=== PATIENT | male | born 1995 | race Caucasian/White ===

== ENCOUNTER → 2018-03-26 | Day surgery (SDC) | payer OTHER ==
--- NOTE | 2018-03-26 14:01 | RADIOLOGY REPORT (SQ) ---
EXAM DESCRIPTION: ARTHRO SHOULDER INJECTION; FLUORO/NEEDLE PLACEMENT COMPLETED DATE/TIME: 03/26/2018 1:40 pm REASON FOR STUDY: OTHER INSTABILITY OF LEFT SHOULDER (M25.312) COMPARISON: None. EXAM PARAMETERS: LIMITATIONS: None. OPERATING PHYSICIAN/PA: Rufus FLUOROSCOPY TIME: 8 seconds NUMBER OF IMAGES: 1 JOINT: Shoulder LATERALITY: Left APPROACH: Posterior ANESTHESIA: 5 mL 1% Lidocaine. LOCALIZING CONTRAST TYPE AND AMOUNT: 1mL Isovue 300 DIAGNOSTIC CONTRAST TYPE AND AMOUNT: 10mL Omnipaque 200 PRE-INJECTION PAIN LEVEL: N/A POST-INJECTION PAIN LEVEL: N/A CROSS-SECTIONAL IMAGING MODALITY: MRI OTHER: none PROCEDURE: Procedure, risks, benefits and alternatives explained to patient who then gave written co nsent. The patient was then moved to the fluoroscopic room, and placed on the table in appropriate po sition. The left shouldermarked. Time-out called. Correct marking verified. Entry site marked using fluorosco pic guidance. Site prepped and draped using sterile technique. Local anesthesia achieved using injection. Hypoderm ic needle introduced into the joint space under direct fluoroscopic visualization. Non-ionic contrast instilled to confirm intra-articular position. Additional diagnostic contrast instilled. Needle xenia yvonne and entry site covered with sterile bandage. No immediate complications noted. FINDINGS: No significant pathology noted on images during and post-injection. IMPRESSION: SUCCESSFUL NEEDLE PLACEMENT AND INJECTION OF left shoulder NO SIGNIFICANT IMAGING FINDINGS. COMMENT: Quality ID #[id number]: Final reports for procedures using fluoroscopy that document radiation exp osure indices, or exposure time and number of fluorographic images (if radiation exposure indices are not available) TECHNICAL DOCUMENTATION: JOB ID: [id number] [employer]- All Rights Reserved Reading location - IP/workstation name: [facility]
--- NOTE | 2018-03-26 14:01 | RADIOLOGY REPORT (SQ) ---
EXAM DESCRIPTION: ARTHRO SHOULDER INJECTION; FLUORO/NEEDLE PLACEMENT COMPLETED DATE/TIME: 03/26/2018 1:40 pm REASON FOR STUDY: OTHER INSTABILITY OF LEFT SHOULDER (M25.312) COMPARISON: None. EXAM PARAMETERS: LIMITATIONS: None. OPERATING PHYSICIAN/PA: Rufus FLUOROSCOPY TIME: 8 seconds NUMBER OF IMAGES: 1 JOINT: Shoulder LATERALITY: Left APPROACH: Posterior ANESTHESIA: 5 mL 1% Lidocaine. LOCALIZING CONTRAST TYPE AND AMOUNT: 1mL Isovue 300 DIAGNOSTIC CONTRAST TYPE AND AMOUNT: 10mL Omnipaque 200 PRE-INJECTION PAIN LEVEL: N/A POST-INJECTION PAIN LEVEL: N/A CROSS-SECTIONAL IMAGING MODALITY: MRI OTHER: none PROCEDURE: Procedure, risks, benefits and alternatives explained to patient who then gave written co nsent. The patient was then moved to the fluoroscopic room, and placed on the table in appropriate po sition. The left shouldermarked. Time-out called. Correct marking verified. Entry site marked using fluorosco pic guidance. Site prepped and draped using sterile technique. Local anesthesia achieved using injection. Hypoderm ic needle introduced into the joint space under direct fluoroscopic visualization. Non-ionic contrast instilled to confirm intra-articular position. Additional diagnostic contrast instilled. Needle xenia yvonne and entry site covered with sterile bandage. No immediate complications noted. FINDINGS: No significant pathology noted on images during and post-injection. IMPRESSION: SUCCESSFUL NEEDLE PLACEMENT AND INJECTION OF left shoulder NO SIGNIFICANT IMAGING FINDINGS. COMMENT: Quality ID #[id number]: Final reports for procedures using fluoroscopy that document radiation exp osure indices, or exposure time and number of fluorographic images (if radiation exposure indices are not available) TECHNICAL DOCUMENTATION: JOB ID: [id number] [employer]- All Rights Reserved Reading location - IP/workstation name: [facility]
--- NOTE | 2018-03-26 14:51 | RADIOLOGY REPORT (SQ) ---
EXAM DESCRIPTION: MRI LT UPPER JOINT WITH COMPLETED DATE/TIME: 03/26/2018 2:12 pm REASON FOR STUDY: OTHER INSTABILITY OF LEFT SHOULDER (M25.312) M25.312 OTHER INSTABILITY, LEFT SHOU LDER COMPARISON: Plain radiograph TECHNIQUE: Left shoulder images acquired and stored on PACS. Oblique coronal, oblique sagittal, and axial imaging to include fat sensitive sequences as T1, water sensitive sequences as FST2/STIR, and c ontrast sensitive sequences as FST1. LIMITATIONS: None. FINDINGS: JOINT DISTENTION: Adequate distention for interpretation. BONE MARROW AND CORTEX: Normal. No significant osteophytes. No edema or defects. AC JOINT: Type 1 acromion. In. No significant AC joint arthropathy. GLENOHUMERAL JOINT: Posterior subluxation of the humeral head with respect to the glenoid. There is generalized irregular cartilaginous loss of the general glenohumeral joint. Subchondral cyst formati on through the glenoid. ROTATOR CUFF: Intact without significant tendinopathy, partial or full-thickness tears. No peritendin itis. LABRUM AND BICEPS LABRAL COMPLEX: Shallow glenoid. Minimal superior labrum. Apparent prior biceps t enodesis. INFERIOR LABRAL COMPLEX: Bony glenoid and labrum intact. IGHL intact without thickening or tear. No p aralabral cysts. ADJACENT SOFT TISSUES: No masses or nodes. OTHER: No other significant finding. IMPRESSION: Glenohumeral osteoarthritis with posterior subluxation of the humerus with respect to th e glenoid. Intact rotator cuff. Absent superior labrum with a shallow glenoid. Apparent prior biceps tenodesis. TECHNICAL DOCUMENTATION: JOB ID: [id number] [employer]- All Rights Reserved Reading location - IP/workstation name: [facility]
== END ==
LOC: RAD 12:40
PROVIDERS: ATTEND Orthopaedic Surgery
DX: M25.312 Other instability, left shoulder (principal)
CPT/HCPCS: 23350; 77002

== ENCOUNTER 2018-09-12 02:22 | Emergency (ER) | payer OTHER ==
--- NOTE | 2018-09-12 03:13 | ER Document Report ---
ED General - General Stated Complaint: PSYCH Time Seen by Provider: 09/12/18 03:11 Notes: Patient is a 23-year old male with a past medical history of anxiety, depression, presents due to having called a friend and stated that he was acutely suicidal. The patient admits that he was drinking heavily tonight, does not recall making this phone call. He does however admit that he continues to have daily passive suicidal ideation, feels numb all the time, does not have any natalia or pleasure in his life. Reports that he has felt like this for some time "states I know my screws are not on tight". States that [facility] but [facility] as he did not like the way they made him feel and did not feel like they were helping. He states that he has tried to harm himself once in the past but could not go through with it due to his children. He also relates significant emotional and relationship discord with his . Denies any acute medical concerns today. Nothing improves or worsens his symptoms currently. TRAVEL OUTSIDE OF THE [place] IN LAST 30 DAYS: No - Related Data Allergies/Adverse Reactions: No Known Allergies Allergy (Verified 09/18/13 17:15) Past Medical History - General Information source: Patient - Social History Smoking Status: Never Smoker Chew tobacco use (# tins/day): Yes Frequency of alcohol use: Social Drug Abuse: None Lives with: Spouse/Significant other Family History: Reviewed & Not Pertinent - Immunizations Immunizations up to date: Yes Hx Diphtheria, Pertussis, Tetanus Vaccination: Yes Review of Systems - Review of Systems Notes: Constitutional: Negative for fever. HENT: Negative for sore throat. Eyes: Negative for visual changes. Cardiovascular: Negative for chest pain. Respiratory: Negative for shortness of breath. Gastrointestinal: Negative for abdominal pain, vomiting or diarrhea. Genitourinary: Negative for dysuria. Musculoskeletal: Negative for back pain. Skin: Negative for rash. Neurological: Negative for headaches, weakness or numbness. 10 point ROS negative except as marked above and in HPI. Physical Exam - Vital signs Interpretation: Normal Notes: PHYSICAL EXAMINATION: GENERAL: Well-appearing, well-nourished and in no acute distress. HEAD: Atraumatic, normocephalic. EYES: Pupils equal round and reactive to light, extraocular movements intact, sclera anicteric, conjunctiva are normal. ENT: nares patent, oropharynx clear without exudates. Moist mucous membranes. NECK: Normal range of motion, supple without lymphadenopathy LUNGS: Breath sounds clear to auscultation bilaterally and equal. No wheezes rales or rhonchi. HEART: Regular rate and rhythm without murmurs ABDOMEN: Soft, nontender, normoactive bowel sounds. No guarding, no rebound. No masses appreciated. EXTREMITIES: Normal range of motion, no pitting or edema. No cyanosis. NEUROLOGICAL: No focal neurological deficits. Moves all extremities sponta neously and on command. PSYCH: Normal mood, normal affect. SKIN: Warm, Dry, normal turgor, no rashes or lesions noted. Course - Re-evaluation Re-evalutation: 09/12/18 03:12 Patient presents with suicidal ideation that has been ongoing and intermittent over the last 1 year, currently off all medications, has refused medications in the past. Apparently he while intoxicated called a friend brenda, expressed suicidal thoughts and was subsequently brought here to the emergency department. The patient has attempted suicide in the past approximate 1 year ago but denies any current plans to do so. He does not immediately be 80 involuntary commitment criteria but has agreed to remain here in the emergency department for behavioral health assessment in the morning. Medical screening exam unremarkable otherwise. Labs pending. - EKG Interpretation by Me Additional EKG results interpreted by me: 09/12/18 03:36 Sinus rhythm, rate 90. No ST elevations or depressions. QTC 413. Discharge - Discharge Clinical Impression: Passive suicidal ideations Depression Qualifiers: Depression Type: unspecified Qualified Code(s): F32.9 - Major depressive disorder, single episode, unspecified Referrals: KAT HONG MD [Primary Care Provider] - Follow up as needed
[2018-09-12 04:03] LABS: ABSOLUTE BASOPHILS # (AUTO) 0.3 10^3/uL (0.0-0.2); ABSOLUTE EOSINOPHILS # (AUTO) 0.2 10^3/uL (0.0-0.6); ABSOLUTE LYMPHOCYTES (AUTO) 1.9 10^3/uL (0.5-4.7); ABSOLUTE MONOCYTES (AUTO) 0.4 10^3/uL (0.1-1.4); ABSOLUTE NEUT (AUTO) 11.9 10^3/uL (1.7-8.2); BASOPHILS % (AUTO) 1.9 % (0-2); HEMOGLOBIN 16.3 g/dL (13.5-17.0); MEAN CORPUSCULAR HEMOGLOBIN 31.4 pg (27.0-33.4); MEAN CORPUSCULAR HGB CONC 34.6 g/dL (32.0-36.0); MEAN CORPUSCULAR VOLUME 91 fl (80-97); MONOCYTES % (AUTO) 2.5 % (3-13); PLATELET COUNT 195 10^3/uL (150-450); RED BLOOD COUNT 5.19 10^6/uL (4.35-5.55); RED CELL DISTRIBUTION WIDTH 12.5 % (11.5-14.0); SEGMENTED NEUTROPHILS % (AUTO) 81.6 % (42-78); TOTAL CELLS COUNTED % (AUTO) 100 %; WHITE BLOOD COUNT 14.6 10^3/uL (4.0-10.5)
[2018-09-12 04:20] LABS: ALANINE AMINOTRANSFERASE 61 U/L (21-72); ALBUMIN 5.3 g/dL (3.5-5.0); ALCOHOL 191 mg/dL (NONE DETECTED); ALKALINE PHOSPHATASE 54 U/L (38-126); ANION GAP 15 (5-19); ASPARTATE AMINO TRANSFERASE 215 U/L (17-59); BILIRUBIN,DIRECT 0.2 mg/dL (0.0-0.4); BILIRUBIN,TOTAL 0.5 mg/dL (0.2-1.3); BLOOD UREA NITROGEN 10 mg/dL (7-20); CALCIUM 9.5 mg/dL (8.4-10.2); CARBON DIOXIDE 21 mmol/L (22-30); CHLORIDE 109 mmol/L (98-107); GLUCOSE 101 mg/dL (75-110); POTASSIUM 4.3 mmol/L (3.6-5.0); SODIUM 145.2 mmol/L (137-145); TOTAL PROTEIN 7.9 g/dL (6.3-8.2)
[2018-09-12 04:24] LABS: ACETAMINOPHEN < 10 ug/mL (10-30); SALICYLATE < 1.0 mg/dL (2.0-20.0)
[2018-09-12] MEDS ORDERED: ACETAMINOPHEN 325 MG TABLET PO ONE (04:49)
--- NOTE | 2018-09-12 09:00 | EKG REPORT ---
SEVERITY:- NORMAL ECG - SINUS RHYTHM : Confirmed by: German Soto MD 12-Sep-2018 08:59:28
[2018-09-12] MEDS ORDERED: NICOTINE 21 MG/24 HR PATCH.TD24 TD ONE (10:55)
[2018-09-12 11:01] LABS: APPEARANCE,URINE SLIGHTLY-CLOUDY; BILIRUBIN,URINE NEGATIVE (NEGATIVE); COLOR,URINE YELLOW; GLUCOSE, URINE NEGATIVE (NEGATIVE); KETONES,URINE NEGATIVE (NEGATIVE); LEUKOCYTE ESTERASE,URINE TRACE (NEGATIVE); NITRITE,URINE NEGATIVE (NEGATIVE); PROTEIN,URINE NEGATIVE (NEGATIVE); URINE SPECIFIC GRAVITY 1.019; UROBILINOGEN,URINE NEGATIVE mg/dL (<2.0)
[2018-09-12 12:21] LABS: URINE AMPHETAMINES SCREEN NEGATIVE; URINE BARBITURATES SCREEN NEGATIVE; URINE BENZODIAZEPINES SCREEN NEGATIVE; URINE COCAINE SCREEN NEGATIVE; URINE MARIJUANA (THC) SCREEN UNCONFIRMED POSITIVE; URINE METHADONE SCREEN NEGATIVE; URINE PHENCYCLIDINE SCREEN NEGATIVE
--- NOTE | 2018-09-12 13:47 | PSYCHOLOGICAL NOTE ---
Psych Note - Psych Note Date seen by psych provider: 09/12/18 Time seen by psych provider: 09:20 Psych Note: Reason for consult: suicidal ideation Patient is a 23-year old male with a past medical history of anxiety, depression, presents due to having called a friend and stated that he was acutely suicidal. Patient discloses that he does not remember how he arrived to the ED or why he is truly here. He reports that he was drinking last night and normally drinks 8-9 beers daily because of shoulder pain. He reports that he has had significant depression after his 3 surgeries because they have not helped at all. He reports that he is now medically retired from the [employer] because of his shoulder. He states it is been approximately a year and half to two years since he was medically retired. He reports that approximately a year and a half ago he thought about putting a Bovie knife into his chest and attempt to kill himself and had a knife against his chest when he stopped. When asked why he stopped he states that it was thoughts of his children and then finding him. He discloses that his depression has gotten worse and [facility] but they "do not help or listen to people." He reports that he was put on medication for a year and a half ago however "I do not like the way it made me feel so stopped it." Patient reports that he is being having thoughts of "wrapping my car around a tree...my depression has gotten really bad." Patient disclosed that he wants to get better and is asking for help. When asked about his drinking he reports that he drinks in order to numb the pain and because of his depression however feels that if he needs to stop he would have no problems doing out. He reports that last night was the first time he had drank since . Patient is alert and orientated to person, place, time and circumstance. Mood is dysphoric with congruent affect clinician notes patient did tear up on end of conversation. Patient endorses suicidal ideation with a plan of crashing his car into a tree. Patient denies homicidal ideation. Delusions are absent behaviors congruent with an intact reality based presentation i.e. organized and linear thought process. Eye contact is well-maintained. Conversational speech is within normal rate, tone and prosody. Intellectual abilities appear to be within the average range. Attention and concentration are fair. Insight, judgment, impulse control are poor. No medication recommendations at this time 296.30 (F33.9) major depressive disorder; recurrent, unspecified 291.9 (F10.99) unspecified alcohol related disorder; patient identifies self- medicating from depression and pain Impression\\plan: Patient is recommended for IVC. Patient discloses suicidal ideation with a plan of "wrapping my car around a tree." Patient becomes tearful and states that he wants help and feels that the [facility] refuses to help him. He discloses increase in depression with a previous event of suicidal ideation with a plan approximately a year and a half ago. Patient is medically retired from the [employer] approximately 1-1/2-2 years ago. Patient confirms he has been drinking and attempt to self medicate from the pain he has from his shoulder and his depression. Patient will be reevaluated. Dr. Bernard was consulted and care management this patient; attending physician is agreement with recommendations and disposition.
[2018-09-12] MEDS ORDERED: HALOPERIDOL LACTATE INJ 5 MG/1 ML VIAL IM ONE (14:21)
[2018-09-12] MEDS ORDERED: DIPHENHYDRAMINE HCL 50 MG CAPSULE PO ONE (14:21)
--- NOTE | 2018-09-12 18:57 | ER Document Report ---
Doctor's Note Notes: 09/12/18 18:56 The patient does want help with his depression and substance abuse, and does suggest that he may still have suicidal ideations. He is not felt to be a good candidate for outpatient management at this time. IVC second eval was done and arrangements were made for the patient to be transferred to [facility] today.
[2018-09-12 22:57] VITALS: BP 135/73
== END 2018-09-12 22:20 ==
LOC: ER 02:22
DX: R45.851 Suicidal ideations (principal); F32.9 Major depressive disorder, single episode, unspecified; Z63.0 Problems in relationship with spouse or partner
CPT/HCPCS: 93005; 99285; 96372; 36415; 80307 ×4; 85025; 80053; 81001; 93010; J1630